=== PATIENT | female | born 1950 | race Caucasian/White ===

== ENCOUNTER 2020-01-04 07:26 | Outpatient (CLI) | payer MEDICARE, BC ==
[2020-01-04 07:52] LABS: BILIRUBIN,URINE NEGATIVE (NEGATIVE); GLUCOSE, URINE (UA) 250 mg/dL (NEGATIVE); KETONES,URINE (UA) NEGATIVE (NEGATIVE); LEUKOCYTE ESTERASE, URINE NEGATIVE (NEGATIVE); NITRITE,URINE NEGATIVE (NEGATIVE); OCCULT BLOOD,URINE SMALL (NEGATIVE); PROTEIN,URINE 30 mg/dL (NEGATIVE); UROBILINOGEN,URINE 0.2 (NORMAL) E.U./dL (NORMAL)
[2020-01-04 07:53] LABS: BASOPHILS % (AUTO) 0.3 %; EOSINOPHILS # (AUTO) 0.1 10^3/uL (0.0-0.7); EOSINOPHILS % (AUTO) 1.3 %; HGB - HEMOGLOBIN 13.1 g/dL (12.0-16.0); LYMPHOCYTES # (AUTO) 2.2 10^3/uL (1.5-3.5); LYMPHOCYTES % (AUTO) 36.5 %; MEAN CORPUSCULAR HEMOGLOBIN 31.7 pg (27.0-31.0); MEAN CORPUSCULAR HGB CONC 33.4 g/dL (32.0-36.0); MEAN CORPUSCULAR VOLUME 94.9 fL (81.0-99.0); MEAN PLATELET VOLUME 9.9 fL (7.9-10.8); MONOCYTES # (AUTO) 0.6 10^3/uL (0.0-1.0); NEUTROPHILS # (AUTO) 3.2 10^3/uL (1.5-6.6); NEUTROPHILS % (AUTO) 52.7 %; PLT - PLATELET COUNT 227 10^3/uL (130-450); RED BLOOD COUNT 4.13 10^6/uL (4.20-5.40); RED CELL DISTRIBUTION WIDTH 12.5 % (12.0-15.0); WHITE BLOOD COUNT 6.1 x10^3/uL (4.8-10.8)
[2020-01-04 07:56] LABS: CLARITY,URINE CLEAR (CLEAR)
[2020-01-04 08:00] LABS: BACTERIA,URINE Rare /HPF (None Seen); RBC,URINE 0-5 /HPF (0-5)
[2020-01-04 08:01] LABS: CASTS, URINE 0-2 Course Granular /LPF; SQUAMOUS EPITHELIAL CELL,UR NONE SEEN (<= Few)
[2020-01-04 08:16] LABS: ALBUMIN 3.7 g/dL (3.2-5.5); BILIRUBIN,TOTAL 1.4 mg/dL (0.2-1.0); CALCIUM 9.4 mg/dL (8.5-10.3); CREATININE 1.1 mg/dL (0.4-1.0); TOTAL PROTEIN 7.5 g/dL (6.7-8.2)
== END 2020-01-04 07:27 | disposition home or self-care (01) ==
LOC: LAB 07:26
PROVIDERS: ATTEND Orthopaedic Surgery
DX: Z01.818 Encounter for other preprocedural examination (principal); M17.11 Unilateral primary osteoarthritis, right knee
CPT/HCPCS: 36415; 80053; 81001; 85025; 93005

== ENCOUNTER 2020-04-15 14:30 | Outpatient (CLI) | payer MEDICARE, BC ==
--- NOTE | 2020-04-15 16:17 | Ultrasound Report ---
PROCEDURE: Carotid Doppler Complete INDICATIONS: CAROTID STENOSIS TECHNIQUE: Color and pulse Doppler interrogation was performed of both carotid systems, with image documentation and velocity measurements. COMPARISON: None. FINDINGS: Right side: Brachial blood pressure: Not measured Common carotid artery peak systolic velocity: 69 cm/sec. Internal carotid artery peak systolic velocity: Occluded Internal carotid artery end diastolic velocity: Occluded External carotid artery peak systolic velocity: 78 cm/sec. ICA/CCA peak systolic ratio: Not applicable. Valle scale imaging description: There is occlusion of the right internal carotid artery Percent internal carotid artery stenosis: 100% Vertebral artery: Flow direction is antegrade. Left side: Brachial blood pressure: Not measured Common carotid artery peak systolic velocity: 75 cm/sec. Internal carotid artery peak systolic velocity: 111 cm/sec. Internal carotid artery end diastolic velocity: 36 cm/sec. External carotid artery peak systolic velocity: 75 cm/sec. ICA/CCA peak systolic ratio: 1.2 Valle scale imaging description: Moderate atherosclerotic changes are seen. Percent internal carotid artery stenosis: Less than 50% by velocity criteria. Vertebral artery: Flow direction is antegrade. IMPRESSION: Complete occlusion of the right internal carotid artery. Please correlate with known patient history. The estimate of stenosis included in the report of the imaging study was calculated using the NASCET method Reviewed by: Amandeep Buckley MD on 04/15/2020 3:16 PM [facility] Approved by: Amandeep Buckley MD on 04/15/2020 3:16 PM [facility] Station ID: [id number]
== END 2020-04-15 14:31 | disposition home or self-care (01) ==
LOC: DI 14:30
PROVIDERS: ATTEND Internal Medicine Cardiovascular Disease
DX: I65.21 Occlusion and stenosis of right carotid artery (principal)
CPT/HCPCS: 93880

== ENCOUNTER 2020-10-19 18:40 | Outpatient (CLI) | payer MEDICARE, BC | END 2020-10-19 18:41 | disposition short-term general hospital (02) | LOC: EMS 18:40 | DX: R07.89 Other chest pain (principal); R06.09 Other forms of dyspnea | CPT/HCPCS: A0425; A0427 ==

== ENCOUNTER 2021-01-03 16:12 | Outpatient (CLI) | payer MEDICARE, BC ==
--- NOTE | 2021-01-03 18:29 | Ultrasound Report ---
PROCEDURE: Head or Neck Soft Tissue INDICATIONS: SWOLLEN NODULE TECHNIQUE: Real time scanning was performed of the thyroid and submandibular gland regions of [facility], with image documentation. COMPARISON: None. FINDINGS: The right thyroid lobe measures 4.3 x 1.3 x 1.2 cm. The left lobe measures 3.6 x 1.0 x 1.4 cm. The isthmus is 2 mm. Both lobes are homogeneous in echotexture without dominant nodule. The right submandibular gland measures 4.0 x 1.7 x 3.3 cm. The left measures 3.8 x 1.6 x 3.2 cm. Both glands demonstrate symmetric and uniform echotexture without edema, stone, ductal dilatation, or mas s. IMPRESSION: 1. Normal thyroid gland. 2. Normal submandibular glands. Reviewed by: Jesika Delarosa MD on 01/03/2021 6:28 PM PDT Approved by: Jesika Delarosa MD on 01/03/2021 6:28 PM PDT Station ID: [id number]
== END 2021-01-03 16:13 | disposition home or self-care (01) ==
LOC: DI 16:12
PROVIDERS: ATTEND Internal Medicine
DX: R22.1 Localized swelling, mass and lump, neck (principal)

== ENCOUNTER 2021-03-20 10:03 | Outpatient (CLI) | payer MEDICARE, BC ==
--- NOTE | 2021-03-27 08:44 | Mammography Report ---
BILATERAL DIGITAL SCREENING MAMMOGRAM 3D/2D: 03/20/2021 CLINICAL: Routine screening. No prior exams were available for comparison. The tissue of both breasts is predominantly fatty. There are benign vascular calcifications in both breasts. No significant masses, calcifications, or other findings are seen in either breast. IMPRESSION: BENIGN There is no mammographic evidence of malignancy. A 1 year screening mammogram is recommended. This exam was interpreted at Station ID: [id number]. NOTE: For mammograms, a report in lay terms will be sent to the patient. Approximately 15% of breast malignancies will not be visualized mammographically. In the management of a palpable breast mass, a negative mammogram must not discourage biopsy of a clinically suspicious lesion. Electronically Signed By: Clyde John acr/penrad:03/26/2021 13:53:57 ACR BI-RADS Category 2: Benign Finding(s) 3342F PARENCHYMAL PATTERN: (F) - The breast(s) demonstrate(s) diffuse fatty replacement. BI-RADS CATEGORY: (2) - 2 RECOMMENDATION: (ANNUAL) - Recommend routine annual screening mammography. [id number] 1 year screening LATERALITY: (B)
== END 2021-03-20 10:04 | disposition home or self-care (01) ==
LOC: DI.S 10:03
DX: Z12.31 Encounter for screening mammogram for malignant neoplasm of breast (principal)

== ENCOUNTER 2021-05-20 11:28 | Outpatient (CLI) | payer MEDICARE, BC ==
--- NOTE | 2021-05-21 15:48 | Ultrasound Report ---
PROCEDURE: Carotid Doppler Complete INDICATIONS: RIGHT ICA OCCLUSION TECHNIQUE: Color and pulse Doppler interrogation was performed of both carotid systems, with image documentation and velocity measurements. COMPARISON: 04/15/2020. FINDINGS: Right side: Common carotid artery peak systolic velocity: 82 cm/sec. Internal carotid artery peak systolic velocity: 121 cm/sec. Internal carotid artery end diastolic velocity: 37 cm/sec. External carotid artery peak systolic velocity: 99 cm/sec. ICA/CCA peak systolic ratio: 1.5 . Valle scale imaging description: There is moderate hyperechoic and calcified plaque within the caroti d bulb. Percent internal carotid artery stenosis: Approximately 50%. The distal carotid bulb is seen to leatha butler on the current study. Vertebral artery: Flow direction is antegrade. Left side: Common carotid artery peak systolic velocity: 109 cm/sec. Internal carotid artery peak systolic velocity: 156 cm/sec. Internal carotid artery end diastolic velocity: 54 cm/sec. External carotid artery peak systolic velocity: 106 cm/sec. ICA/CCA peak systolic ratio: 2 . Valle scale imaging description: There is moderate calcified and hyperechoic plaque in the carotid bu lb. Percent internal carotid artery stenosis: 50-69% . Vertebral artery: Flow direction is antegrade. IMPRESSION: 1. Flow demonstrated within the right carotid bulb and visualized internal carotid artery. The region of nonvisualized flow in the distal right carotid bulb on the prior study may have been due to tortu osity of the vessel. Consider further evaluation with a CT or MR angiogram if clinically indicated. 2. Narrowing of 50-69% in the left carotid bulb which appears increased from the prior study. The estimate of stenosis included in the report of the imaging study was calculated using the NASCET method Reviewed by: Shawn Manuel MD on 05/21/2021 2:47 PM [facility] Approved by: Shawn Manuel MD on 05/21/2021 2:47 PM [facility] Station ID: [id number]
== END 2021-05-20 11:29 | disposition home or self-care (01) ==
LOC: DI 11:28
PROVIDERS: ATTEND Internal Medicine
DX: I65.23 Occlusion and stenosis of bilateral carotid arteries (principal)
CPT/HCPCS: 93880

== ENCOUNTER 2021-06-30 14:31 | Outpatient (CLI) | payer MEDICARE, BC ==
--- NOTE | 2021-06-30 18:05 | Ultrasound Report ---
PROCEDURE: Pelvic w/Transvaginal INDICATIONS: POST MENOPAUSAL BLEEDING TECHNIQUE: Real-time scanning was performed of the pelvic organs, with image documentation. Additional endovagi nal scanning was necessary due to incomplete visualization of the adnexal and endometrial structures by transabdominal scanning. COMPARISON: None. FINDINGS: No pathologic free abdominal or pelvic fluid. Uterus: Uterus is mildly atrophic 5 in size at 3.8 x 2 0.3, 0.7 cm. The endometrium measures 5 mm i n combined thickness. There is a focus of heterogeneous echogenicity in the right anterior subserosa l region measuring 27 x 19 x 21 mm with a similar focus in the mid anterior intramural region measuri ng 16 x 10 x 19 mm. Both of these areas demonstrate calcifications. Ovaries: Right ovaries not visualized. Left ovary measures 8 x 13 x 9 mm. IMPRESSION: Fibroids are present as above. Endometrial complex is at the upper limits of normal in a postmenopausal patient with bleeding. Recom mend close interval imaging and clinical follow-up if symptoms persist. Reviewed by: Melissa Diamond MD on 06/30/2021 6:04 PM PST Approved by: Melissa Diamond MD on 06/30/2021 6:04 PM PST Station ID: [id number]
== END 2021-06-30 14:32 | disposition home or self-care (01) ==
LOC: DI 14:31
PROVIDERS: ATTEND Anesthesiology
DX: N85.8 Other specified noninflammatory disorders of uterus (principal); N95.0 Postmenopausal bleeding

== ENCOUNTER 2021-08-09 13:14 | Outpatient (CLI) | payer MEDICARE, BC ==
--- NOTE | 2021-08-09 16:02 | XRAY Report ---
PROCEDURE: Chest 2 View X-Ray INDICATIONS: COUGH TECHNIQUE: 2 view(s) of the chest. COMPARISON: None. FINDINGS: Surgical changes and devices: None. Lungs and pleura: No pleural effusions or pneumothorax. Lungs are clear. Mediastinum: Mediastinal contours are normal. Heart size is normal. Bones and chest wall: No suspicious bony abnormalities. Soft tissues appear unremarkable. IMPRESSION: No acute cardiopulmonary disease process. Reviewed by: Pushpa Guadarrama MD, PhD on 08/09/2021 4:00 PM [facility] Approved by: Pushpa Guadarrama MD, PhD on 08/09/2021 4:00 PM [facility] Station ID: [id number]
== END 2021-08-09 13:15 | disposition home or self-care (01) ==
LOC: DI 13:14
PROVIDERS: ATTEND Physician Assistant
DX: R05.3 Chronic cough (principal); R09.89 Other specified symptoms and signs involving the circulatory and respiratory systems

== ENCOUNTER 2021-10-04 20:11 | Outpatient (CLI) | payer MEDICARE, BC ==
--- NOTE | 2021-10-05 11:09 | Ultrasound Report ---
PROCEDURE: Ext Limited Non Vascular INDICATIONS: LEFT CALCANEUS PAIN/ POSS FOREIGN BODY TECHNIQUE: Real-time scanning was performed of the left heel soft tissues, with image documentation. COMPARISON: None. FINDINGS: Small 6 x 3 x 3 mm area of hypoechogenicity with central isoechogenicity noted in the yumiko on of clinical interest. IMPRESSION: 6 x 3 x 3 mm lesion in the region of clinical interest. Lesion has nonspecific imaging c haracteristics but could represent a small foreign body. Reviewed by: Pushpa Guadarrama MD, PhD on 10/05/2021 11:08 AM PDT Approved by: Pushpa Guadarrama MD, PhD on 10/05/2021 11:08 AM PDT Station ID: [id number]
== END 2021-10-04 20:12 | disposition home or self-care (01) ==
LOC: DI 20:11
PROVIDERS: ATTEND Podiatrist
DX: R93.6 Abnormal findings on diagnostic imaging of limbs (principal)

== ENCOUNTER 2021-10-31 08:21 | Outpatient (CLI) | payer MEDICARE, BC ==
[2021-10-31 14:09] LABS: BASOPHILS % (AUTO) 0.2 %; EOSINOPHILS # (AUTO) 0.1 10^3/uL (0.0-0.7); EOSINOPHILS % (AUTO) 0.8 %; HCT - HEMATOCRIT 34.6 % (37.0-47.0); HGB - HEMOGLOBIN 11.2 g/dL (12.0-16.0); LYMPHOCYTES # (AUTO) 2.4 10^3/uL (1.5-3.5); LYMPHOCYTES % (AUTO) 28.6 %; MEAN CORPUSCULAR HEMOGLOBIN 31.4 pg (27.0-31.0); MEAN CORPUSCULAR HGB CONC 32.4 g/dL (32.0-36.0); MEAN CORPUSCULAR VOLUME 96.9 fL (81.0-99.0); MEAN PLATELET VOLUME 10.5 fL (7.9-10.8); MONOCYTES # (AUTO) 0.7 10^3/uL (0.0-1.0); MONOCYTES % (AUTO) 8.8 %; NEUTROPHILS # (AUTO) 5.1 10^3/uL (1.5-6.6); NEUTROPHILS % (AUTO) 61.2 %; PLT - PLATELET COUNT 297 10^3/uL (130-450); RED BLOOD COUNT 3.57 10^6/uL (4.20-5.40); RED CELL DISTRIBUTION WIDTH 13.2 % (12.0-15.0); WHITE BLOOD COUNT 8.3 x10^3/uL (4.8-10.8)
[2021-10-31 14:26] LABS: BILIRUBIN,URINE NEGATIVE (NEGATIVE); GLUCOSE, URINE (UA) NEGATIVE (NEGATIVE); KETONES,URINE (UA) NEGATIVE (NEGATIVE); LEUKOCYTE ESTERASE, URINE NEGATIVE (NEGATIVE); NITRITE,URINE NEGATIVE (NEGATIVE); OCCULT BLOOD,URINE NEGATIVE (NEGATIVE); PH,URINE 5.5 PH (5.0-7.5); PROTEIN,URINE NEGATIVE (NEGATIVE); UROBILINOGEN,URINE 0.2 (NORMAL) E.U./dL (NORMAL)
[2021-10-31 14:30] LABS: CLARITY,URINE CLEAR (CLEAR)
[2021-10-31 14:36] LABS: INR 0.8 (0.8-1.2); PT - PROTHROMBIN TIME 9.2 secs (9.9-12.6)
[2021-10-31 14:44] LABS: PARTIAL THROMBOPLASTIN TIME 25.8 secs (24.9-33.3)
[2021-10-31 14:54] LABS: ALBUMIN 3.7 g/dL (3.2-5.5); ALBUMIN/GLOBULIN RATIO 1.2 (1.0-2.2); BILIRUBIN,TOTAL 0.8 mg/dL (0.2-1.0); CALCIUM 9.2 mg/dL (8.5-10.3); CREATININE 1.2 mg/dL (0.4-1.0); POTASSIUM 3.6 mmol/L (3.5-5.0); TOTAL PROTEIN 6.7 g/dL (6.7-8.2)
== END 2021-10-31 08:22 | disposition home or self-care (01) ==
LOC: LAB.S 08:21
PROVIDERS: ATTEND Physician Assistant
DX: R60.0 Localized edema (principal); Z79.899 Other long term (current) drug therapy
CPT/HCPCS: 36415; 80053; 81001; 81003; 85025; 85610; 85730

== ENCOUNTER 2022-05-07 08:00 | Outpatient (CLI) | payer MEDICARE, BC ==
[2022-05-07 16:16] LABS: BASOPHILS % (AUTO) 0.5 %; EOSINOPHILS # (AUTO) 0.1 10^3/uL (0.0-0.7); EOSINOPHILS % (AUTO) 0.6 %; HGB - HEMOGLOBIN 11.4 g/dL (12.0-16.0); LYMPHOCYTES # (AUTO) 2.1 10^3/uL (1.5-3.5); LYMPHOCYTES % (AUTO) 24.3 %; MEAN CORPUSCULAR HEMOGLOBIN 30.8 pg (27.0-31.0); MEAN CORPUSCULAR HGB CONC 32.6 g/dL (32.0-36.0); MEAN CORPUSCULAR VOLUME 94.6 fL (81.0-99.0); MEAN PLATELET VOLUME 10.1 fL (7.9-10.8); MONOCYTES # (AUTO) 0.8 10^3/uL (0.0-1.0); MONOCYTES % (AUTO) 8.8 %; NEUTROPHILS # (AUTO) 5.6 10^3/uL (1.5-6.6); NEUTROPHILS % (AUTO) 65.2 %; PLT - PLATELET COUNT 290 10^3/uL (130-450); RED CELL DISTRIBUTION WIDTH 13.2 % (12.0-15.0); WHITE BLOOD COUNT 8.6 x10^3/uL (4.8-10.8)
[2022-05-07 17:09] LABS: ALBUMIN 3.9 g/dL (3.2-5.5); ALBUMIN/GLOBULIN RATIO 1.3 (1.0-2.2); ALKALINE PHOSPHATASE 63 IU/L (42-121); ALT ALANINE AMINOTRANSFERASE 22 IU/L (10-60); AST ASPARTATE AMINOTRANSFERASE 19 IU/L (10-42); BILIRUBIN,TOTAL 1.2 mg/dL (0.2-1.0); BUN - BLOOD UREA NITROGEN 18 mg/dL (6-20); CALCIUM 9.6 mg/dL (8.5-10.3); CARBON DIOXIDE - CO2 28 mmol/L (21-32); CHLORIDE 102 mmol/L (101-111); CHOL/HDL RATIO 2.4 (<4.4); CHOLESTEROL 189 mg/dL; CK- CREATINE KINASE 122 IU/L (22-269); CREATININE 1.1 mg/dL (0.4-1.0); GFR - MDRD 49 (>89); GLUCOSE 87 mg/dL (70-100); HDL CHOLESTEROL 80 mg/dL; LDL CHOLESTEROL,CALCULATED 94 mg/dL; LDL/HDL RATIO 1.2 (<4.4); POTASSIUM 4.3 mmol/L (3.5-5.0); SODIUM 142 mmol/L (135-145); TRIGLYCERIDES 77 mg/dL; VLDL CHOLESTEROL 15 mg/dL
[2022-05-07 17:10] LABS: CREATININE,URINE 67.4 mg/dL; MICROALBUM/CREATININE RATIO,UR 10.4 ug/mg (<30.0); MICROALBUMIN,URINE 0.7 mg/dL (0-300.0)
[2022-05-07 17:14] LABS: THYROID STIMULATING HORMONE 1.53 uIU/mL (0.34-5.60)
[2022-05-07 21:17] LABS: ESTIMATED AVERAGE GLUCOSE 148 mg/dL (70-100); HEMOGLOBIN A1c% 6.8 % (4.27-6.07)
[2022-05-08 04:08] LABS: HCV AB <0.1 s/co ratio (0.0-0.9)
== END 2022-05-07 23:59 | disposition home or self-care (01) ==
LOC: LAB.R 08:00
PROVIDERS: ATTEND Internal Medicine
DX: Z00.00 Encounter for general adult medical examination without abnormal findings (principal); I25.10 Atherosclerotic heart disease of native coronary artery without angina pectoris; E11.9 Type 2 diabetes mellitus without complications; E78.5 Hyperlipidemia, unspecified; E03.9 Hypothyroidism, unspecified; K52.839 Microscopic colitis, unspecified; Z11.59 Encounter for screening for other viral diseases; Z79.899 Other long term (current) drug therapy; G45.9 Transient cerebral ischemic attack, unspecified
CPT/HCPCS: 36415; 80053; 80061; 82043; 82550; 82570; 82607; 83036; 83721; 84443; 85025; 86803

== ENCOUNTER 2022-08-13 10:06 | Outpatient (CLI) | payer MEDICARE, BC | END 2022-08-13 10:07 | disposition home or self-care (01) | LOC: LAB 10:06 | PROVIDERS: ATTEND Internal Medicine | DX: Z01.818 Encounter for other preprocedural examination (principal); I65.29 Occlusion and stenosis of unspecified carotid artery | CPT/HCPCS: 87640 ==

== ENCOUNTER 2022-11-30 13:41 | Emergency (ER) | payer MEDICARE, BC ==
--- NOTE | 2022-11-30 14:53 | ED Physician Documentation ---
PD HPI ABD PAIN - Stated complaint Stated Complaint: ABD PX - Chief complaint Chief Complaint: Abd Pain - History obtained from History obtained from: Patient, Family - History of Present Illness Timing - onset: How many days ago (5) Timing - duration: Days (5) Timing - details: Gradual onset, Still present Quality: Cramping, Fullness/distended Location: RLQ Improved by: Other (nothing) Worsened by: Eating Associated symptoms: Constipation. No: Nausea, Vomiting, Hematemesis Similar symptoms before: Diagnosis (constipation) Recently seen: Clinic - Additional information Additional information: 72-year-old Fani cohen has had a knee replacement done and she is undergoing physical therapy for that and she was having some scar tissue broken up and more aggressive physical therapy and this required the use of some narcotic pain reliever. She took the narcotic for 2 days 6 days ago and she has not had a bowel movement since. She did try to do a enema today and found that she was not able to get the enema and secondary to blockage by stool. She has not been able to go and she has developed some abdominal pain. She has had this happen to her previously. Review of Systems Constitutional: denies: Fever Ears: denies: Ear pain Nose: denies: Congestion Throat: denies: Sore throat Respiratory: denies: Cough GI: reports: Abdominal Pain, Constipation. denies: Vomiting : denies: Dysuria, Frequency PD PAST MEDICAL HISTORY - Past Medical History Cardiovascular: Hypertension, High cholesterol, Coronary artery disease Neuro: TIA Endocrine/Autoimmune: Type 2 diabetes GI: Other Musculoskeletal: Osteoarthritis - Past Surgical History Cardiovascular: Coronary stent HEENT: Tonsil/Adenoidectomy - Present Medications Home Medications: Ambulatory Orders Medication Instructions Recorded Confirmed ALPRAZolam [Alprazolam] 0.25 mg PO QPM 09/24/21 09/24/21 Amlodipine Besylate [Norvasc] 10 mg PO DAILY 09/24/21 09/24/21 Atorvastatin Calcium 40 mg PO DAILY 09/24/21 09/24/21 Budesonide [Budesonide EC] 3 mg PO DAILY 09/24/21 09/24/21 Chlorthalidone 25 mg PO DAILY 09/24/21 09/24/21 Cholecalciferol [Vitamin D3] 25 mcg PO DAILY 09/24/21 09/24/21 Insulin Glargine [Lantus Solostar] 21 units SUBQ DAILY 09/24/21 09/24/21 Losartan Potassium [Cozaar] 100 mg PO DAILY 09/24/21 09/24/21 Metoprolol Succinate 50 mg PO DAILY 09/24/21 09/24/21 Nitroglycerin [Nitrostat] 0.4 mg SL [id number] 09/24/21 09/24/21 Thyroid,Pork [[place] Thyroid] 1 tab PO DAILY 09/24/21 09/24/21 metFORMIN [Glucophage] 1,000 mg PO BIDWM 09/24/21 09/24/21 - Allergies Allergies/Adverse Reactions: Allergies Allergy/AdvReac Type Severity Reaction Status Date / Time lisinopril AdvReac Unknown Verified 11/30/22 13:54 semaglutide [From Ozempic] AdvReac Emesis Verified 11/30/22 13:54 PD ED PE NORMAL - Vitals Vital signs reviewed: Yes (Hypertensive) - General General: Alert and oriented X 3, No acute distress, Well developed/nourished - HEENT HEENT: Atraumatic, PERRL, EOMI - Neck Neck: Supple, no meningeal sign - Respiratory Respiratory: No respiratory distress - Abdomen Abdomen: Normal bowel sounds, Soft, Non distended, No organomegaly, Other (Mild tenderness to the right side of the abdomenNo guarding or referred tenderness) - Back Back: No CVA TTP, No spinal TTP - Derm Derm: Normal color, Warm and dry, No rash - Extremities Extremities: No deformity, No edema - Neuro Neuro: Alert and oriented X 3, protection mgr 2-12 intact, No motor deficit, No sensory deficit, Normal speech Eye Opening: Spontaneous Motor: Obeys Commands Verbal: Oriented GCS Score: 15 - Psych Psych: Normal mood, Normal affect Results - Vitals Vitals: Vital Signs - 24 hr 11/30/22 11/30/22 11/30/22 13:50 13:54 15:54 Temperature 36.8 C 36.8 C Heart Rate 86 86 88 Respiratory 20 20 18 Rate Blood Pressure 173/93 H 173/93 H 150/80 H O2 Saturation 98 98 98 11/30/22 17:00 Temperature Heart Rate 82 Respiratory 18 Rate Blood Pressure 150/80 H O2 Saturation 99 Oxygen O2 Source Room air PD Medical Decision Making - ED course Complexity details: reviewed results, re-evaluated patient, considered differential, d/w patient, d/w family ED course: 72-year-old female with constipation induced by narcotic presents to the emergency department unable to instill a enema by herself. We were able to instill the enema here and she had results after a second higher enema. Departure - Departure Disposition: 01 Home, Self Care Clinical Impression: Constipation Qualifiers: Constipation type: drug induced constipation Qualified Code(s): K59.03 - Drug induced constipation Condition: Stable Instructions: ED Constipation Follow-Up: Rubia Becerra MD [Primary Care Provider] - Comments: Fani, today looks like you have a narcotic induced constipation and it looks like we are successful in breaking that up. Sometimes when you have been constipated for some time you will have a distention of your colon and it will become "lazy "sometimes it is necessary to retrain your colon and my recommendation after going nearly a week without a bowel movement is to use some MiraLAX on a regular basis for 1 to 2 weeks. The idea with this is to retrain your colon to work normally. Discharge Date/Time: 11/30/22 17:32
[2022-11-30 17:09] VITALS: BP 150/80
== END 2022-11-30 17:32 | disposition home or self-care (01) ==
LOC: ED 13:41
DX: K59.03 Drug induced constipation (principal); I10 Essential (primary) hypertension; E11.9 Type 2 diabetes mellitus without complications; Z79.4 Long term (current) use of insulin
CPT/HCPCS: 99282; 99283

== ENCOUNTER 2023-02-13 15:03 | Outpatient (CLI) | payer MEDICARE, BC ==
--- NOTE | 2023-02-14 15:19 | Ultrasound Report ---
PROCEDURE: Carotid Doppler Complete INDICATIONS: CAROTID ARTERY STENOSIS TECHNIQUE: Color and pulse Doppler interrogation was performed of both carotid systems, with image documentation and velocity measurements. COMPARISON: Prior carotid duplex Doppler dated 05/20/2021.. FINDINGS: Right side: Brachial blood pressure: 150/62 mm Hg. Common carotid artery peak systolic velocity: 64 cm/sec. Internal carotid artery peak systolic velocity: 117 cm/sec. Internal carotid artery end diastolic velocity: 25 cm/sec. External carotid artery peak systolic velocity: 138 cm/sec. ICA/CCA peak systolic ratio: 1.8 . Valle scale imaging description: Heavy scattered plaque Percent internal carotid artery stenosis: Less than 50%. Vertebral artery: Flow direction is antegrade. Left side: Brachial blood pressure: 150/62 mm Hg. Common carotid artery peak systolic velocity: 66 cm/sec. Internal carotid artery peak systolic velocity: 113 cm/sec. Internal carotid artery end diastolic velocity: 24 cm/sec. External carotid artery peak systolic velocity: 81 cm/sec. ICA/CCA peak systolic ratio: 1.7 . Valle scale imaging description: Heavy scattered plaque Percent internal carotid artery stenosis: Less than 50%. Vertebral artery: Flow direction is antegrade. IMPRESSION: 1 Stable less than 50% bilateral internal carotid artery stenosis. 2. Increase in systolic velocities within the right carotid bulb up to 219 cm/s suggesting greater th an 50% stenosis. The estimate of stenosis included in the report of the imaging study was calculated using the [facility]-end orsed standards of carotid artery stenosis. Reviewed by: RUBY Henriquez on 02/14/2023 3:18 PM PDT Approved by: Dimitry Church MD on 02/14/2023 3:18 PM PDT Station ID: [id number]
== END 2023-02-13 15:04 | disposition home or self-care (01) ==
LOC: DI 15:03
PROVIDERS: ATTEND Internal Medicine
DX: I65.23 Occlusion and stenosis of bilateral carotid arteries (principal)
CPT/HCPCS: 93880

== ENCOUNTER 2023-03-04 12:43 | Outpatient (CLI) | payer MEDICARE, BC | END 2023-03-04 12:44 | disposition home or self-care (01) | LOC: LAB 12:43 | PROVIDERS: ATTEND Internal Medicine | DX: Z01.818 Encounter for other preprocedural examination (principal); M25.569 Pain in unspecified knee; M19.90 Unspecified osteoarthritis, unspecified site | CPT/HCPCS: 87640 ==

== ENCOUNTER 2023-05-12 11:33 | Outpatient (CLI) | payer MEDICARE, BC ==
--- NOTE | 2023-05-12 12:45 | XRAY Report ---
PROCEDURE: Foot 3 View LT INDICATIONS: LEFT FOOT PAIN TECHNIQUE: 3 views of the foot were acquired. COMPARISON: None. FINDINGS: Bones: No fractures or dislocations. No suspicious bony lesions. Plantar and dorsal calcaneal ent hesophytes. Soft tissues: No suspicious soft tissue calcifications or masses. Vascular calcifications. IMPRESSION: No acute bony abnormality. Plantar and dorsal calcaneal enthesophytes. Reviewed by: José Soriano on 05/12/2023 12:44 PM PST Approved by: José Soriano on 05/12/2023 12:44 PM PST Station ID: [id number]
== END 2023-05-12 11:34 | disposition home or self-care (01) ==
LOC: DI 11:33
PROVIDERS: ATTEND Podiatrist
DX: M25.775 Osteophyte, left foot (principal)

== ENCOUNTER 2023-05-22 07:56 | Outpatient (CLI) | payer MEDICARE, BC ==
[2023-05-22 14:43] LABS: BASOPHILS % (AUTO) 0.6 %; EOSINOPHILS # (AUTO) 0.1 10^3/uL (0.0-0.7); EOSINOPHILS % (AUTO) 1.9 %; HGB - HEMOGLOBIN 11.1 g/dL (12.0-16.0); LYMPHOCYTES # (AUTO) 1.9 10^3/uL (1.5-3.5); LYMPHOCYTES % (AUTO) 30.6 %; MEAN CORPUSCULAR HEMOGLOBIN 30.6 pg (27.0-31.0); MEAN CORPUSCULAR HGB CONC 31.7 g/dL (32.0-36.0); MEAN CORPUSCULAR VOLUME 96.4 fL (81.0-99.0); MEAN PLATELET VOLUME 10.2 fL (7.9-10.8); MONOCYTES # (AUTO) 0.6 10^3/uL (0.0-1.0); MONOCYTES % (AUTO) 9.8 %; NEUTROPHILS # (AUTO) 3.6 10^3/uL (1.5-6.6); NEUTROPHILS % (AUTO) 56.9 %; PLT - PLATELET COUNT 258 10^3/uL (130-450); RED BLOOD COUNT 3.63 10^6/uL (4.20-5.40); RED CELL DISTRIBUTION WIDTH 12.6 % (12.0-15.0); WHITE BLOOD COUNT 6.3 x10^3/uL (4.8-10.8)
[2023-05-22 15:11] LABS: CREATININE,URINE 45.3 mg/dL; MICROALBUMIN,URINE 2.9 mg/dL
[2023-05-22 15:20] LABS: ESTIMATED AVERAGE GLUCOSE 134 mg/dL (70-100); HEMOGLOBIN A1c% 6.3 % (4.27-6.07)
[2023-05-22 15:22] LABS: % IRON SATURATION 23 % (20-50); ALBUMIN 4.2 g/dL (3.2-5.5); ALBUMIN/GLOBULIN RATIO 1.4 (1.0-2.2); ALKALINE PHOSPHATASE 79 IU/L (42-121); ALT ALANINE AMINOTRANSFERASE 16 IU/L (10-60); AMYLASE 54 U/L (28-100); AST ASPARTATE AMINOTRANSFERASE 16 IU/L (10-42); BILIRUBIN,TOTAL 0.9 mg/dL (0.2-1.0); BUN - BLOOD UREA NITROGEN 23 mg/dL (6-20); CALCIUM 10.2 mg/dL (8.5-10.3); CARBON DIOXIDE - CO2 30 mmol/L (21-32); CHLORIDE 103 mmol/L (101-111); CHOL/HDL RATIO 2.1 (<4.4); CHOLESTEROL 129 mg/dL; CREATININE 1.6 mg/dL (0.6-1.3); GFR - MDRD 32 (>89); GLUCOSE 100 mg/dL (74-104); HDL CHOLESTEROL 62 mg/dL; IRON 77 ug/dL (50-212); LDL CHOLESTEROL,CALCULATED 47 mg/dL; LDL/HDL RATIO 0.8 (<4.4); LIPASE 174 U/L (11-82); SODIUM 140 mmol/L (135-145); TOTAL IRON BINDING CAPACITY 337 ug/dL (250-450); TOTAL PROTEIN 7.2 g/dL (6.4-8.9); TRANSFERRIN 241 mg/dL (203-362); TRIGLYCERIDES 98 mg/dL (48-352); VLDL CHOLESTEROL 20 mg/dL
[2023-05-22 15:24] LABS: THYROID STIMULATING HORMONE 0.84 uIU/mL (0.34-5.60)
[2023-05-22 15:27] LABS: FERRITIN 43.7 ng/mL (11.0-306.8)
== END 2023-05-22 07:57 | disposition home or self-care (01) ==
LOC: LAB.S 07:56
PROVIDERS: ATTEND Internal Medicine
DX: Z00.00 Encounter for general adult medical examination without abnormal findings (principal); D64.9 Anemia, unspecified; I25.10 Atherosclerotic heart disease of native coronary artery without angina pectoris; E11.9 Type 2 diabetes mellitus without complications; E78.5 Hyperlipidemia, unspecified; E03.9 Hypothyroidism, unspecified; K52.839 Microscopic colitis, unspecified; R11.2 Nausea with vomiting, unspecified; R20.0 Anesthesia of skin; G47.33 Obstructive sleep apnea (adult) (pediatric); Z86.16 Personal history of COVID-19; G45.9 Transient cerebral ischemic attack, unspecified
CPT/HCPCS: 36415; 80053; 80061; 82043; 82150; 82570; 82607; 82728; 82746; 83036; 83540; 83690; 83721; 84443; 84466; 85025

== ENCOUNTER 2023-05-28 13:45 | Outpatient (CLI) | payer MEDICARE, BC ==
--- NOTE | 2023-05-29 10:31 | MRI Report ---
PROCEDURE: FOOT WO - LT INDICATIONS: LEFT FOOT PAIN TECHNIQUE: Noncontrast sagittal T1 spin echo and T2 fast spin echo with fat saturation, long-axis T1 spin echo a nd T2 fast spin echo with fat saturation, short-axis proton density fast spin echo and T2 fast spin e cho with fat saturation through the forefoot. COMPARISON: None. FINDINGS: Image quality: Excellent. Bones and joints: Osteoarthritic changes are noted throughout midfoot and forefoot joints more notabl y involving second through fourth TMT joints with joint space narrowing, subchondral sclerosis and cy st formation and mild marrow edema. No fracture or dislocation is seen. No metatarsal stress fracture . Soft tissues: The visualized plantar foot muscles demonstrate normal signal and bulk. Visualized fl exor and extensor tendons appear intact, without tenosynovitis. No soft tissue ganglion cysts or bur padilla fluid collections. Sagittal images demonstrate low to moderate grade partial thickness tear invo lving lateral sesamoid meningeal ligament of first MTP joint with T2 hyperintense signal. Edema super ficial to plantar plate of fourth and fifth toes with signal abnormality within the plantar plate at their distal insertion is seen. IMPRESSION: 1. Midfoot and forefoot joint osteoarthritis as above. No fracture or dislocation. No metatarsal stre ss fractures. 2. Finding is suggestive of low to moderate grade partial thickness tear involving lateral sesamoid p halangeal ligament of first MTP joint concerning for low to moderate grade tear of toe injury. 3. Suggestion of low-grade partial-thickness tear involving plantar plates of fourth and fifth toes a t their distal insertion. 4. Extensor and flexor tendons are intact. Reviewed by: Rupert Harris MD on 05/29/2023 10:29 AM PST Approved by: Rupert Harris MD on 05/29/2023 10:29 AM PST Station ID: [id number]
== END 2023-05-28 13:46 | disposition home or self-care (01) ==
LOC: DI 13:45
PROVIDERS: ATTEND Podiatrist
DX: M19.072 Primary osteoarthritis, left ankle and foot (principal)

== ENCOUNTER 2023-06-18 12:52 | Outpatient (CLI) | payer MEDICARE, BC ==
--- NOTE | 2023-06-18 16:46 | Mammography Report ---
BILATERAL DIGITAL SCREENING MAMMOGRAM 3D/2D: 06/18/2023 CLINICAL: Routine screening. Comparison is made to exam dated: 03/20/2021 mammogram - [facility]. Both breasts are almost entirely fatty (category a/<25% glandular tissue). There are benign vascular calcifications in both breasts. No significant masses, calcifications, or other findings are seen in either breast. There has been no significant interval change. IMPRESSION: BENIGN There is no mammographic evidence of malignancy. A 1 year screening mammogram is recommended. Based on the Tyrer Cuzick model (a risk assessment model) the patients lifetime risk is 2.2% and her 10 year risk is 1.5%. According to the ACR, ACS, and NCCN guidelines, an annual breast MRI exam marianne g with mammogram is recommended if the patients lifetime risk is 20% or greater. This exam was interpreted at Station ID: [id number]. NOTE: For mammograms, a report in lay terms will be sent to the patient. Approximately 15% of breast malignancies will not be visualized mammographically. In the management of a palpable breast mass, a negative mammogram must not discourage biopsy of a clinically suspicious lesion. Electronically Signed By: Ruth carter/kalpana:06/18/2023 13:46:37 ACR BI-RADS Category 2: Benign Finding(s) 3342F PARENCHYMAL PATTERN: (F) - The breast(s) demonstrate(s) diffuse fatty replacement. BI-RADS CATEGORY: (2) - 2 Mammogram [id number] 1 year screening LATERALITY: (B)
== END 2023-06-18 12:53 | disposition home or self-care (01) ==
LOC: DI.S 12:52
PROVIDERS: ATTEND Internal Medicine
DX: Z12.31 Encounter for screening mammogram for malignant neoplasm of breast (principal); R92.1 Mammographic calcification found on diagnostic imaging of breast

== ENCOUNTER 2023-12-04 10:35 | Outpatient (CLI) | payer MEDICARE, BC ==
--- NOTE | 2023-12-04 16:11 | XRAY Report ---
PROCEDURE: Chest 2V INDICATIONS: ACUTE COUGH TECHNIQUE: 2 views of the chest were acquired. COMPARISON: 08/09/2021. FINDINGS: Surgical changes and devices: None. Lungs and pleura: No pleural effusions or pneumothorax. Lungs are clear. Mediastinum: Mediastinal contours appear normal. Heart size is normal. Bones and chest wall: No suspicious bony lesions. Overlying soft tissues appear unremarkable. IMPRESSION: No acute cardiopulmonary process. Reviewed by: Rupert Harris MD on 12/04/2023 4:10 PM PDT Approved by: Rupert Harris MD on 12/04/2023 4:10 PM PDT Station ID: [id number]
== END 2023-12-04 10:36 | disposition home or self-care (01) ==
LOC: DI 10:35
PROVIDERS: ATTEND Internal Medicine
DX: R05.1 Acute cough (principal)